=== PATIENT | female | born 1980 | race African-American/Black ===

== ENCOUNTER 2023-12-01 20:27 | Emergency (ER) | payer MEDICAID ==
[~2023-12-01] VITALS: Ht 160 cm; Wt 100.0 kg
[~2023-12-01 20:27] MED LIST: FISH1CAP47 PO; MULT-60 PO; SAFF1000 PO
[2023-12-01] MEDS ORDERED: ACETAMINOPHEN 160 MG/5 ML SUSPENSION UDCUP PO ONE (21:15)
[2023-12-01] MEDS: ACETAMINOPHEN 325 MG TABLET PO ONE (21:26)
[2023-12-01 21:52] LABS: COVID AG,FIA SOURCE NASAL SWAB
[2023-12-01 22:05] LABS: APPEARANCE,URINE CLEAR (CLEAR); BILIRUBIN,URINE NEGATIVE (NEGATIVE); COLOR,URINE YELLOW (YELLOW); GLUCOSE, URINE (UA) NEGATIVE (NEGATIVE); KETONES,URINE NEGATIVE (NEGATIVE); LEUKOCYTE ESTERASE ,URINE NEGATIVE (NEGATIVE); NITRATE,URINE NEGATIVE (NEGATIVE); OCCULT BLOOD,URINE MODERATE (NEGATIVE); PROTEIN,URINE TRACE mg/dL (NEGATIVE); SPECIFIC GRAVITIY, URINE 1.031 (1.003-1.030); UROBILINOGEN,URINE <=1.0 mg/dL (<=1.0)
[2023-12-01 22:11] LABS: BACTERIA,URINE Rare /HPF (None Seen); SQUAMOUS EPITHELIAL CELL,UR Moderate /LPF (None Seen); WBC,URINE 0-2 /HPF (0-5)
[2023-12-01 22:17] LABS: INFLUENZA TYPE A NEGATIVE FOR TYPE A (NEGATIVE); INFLUENZA TYPE B NEGATIVE FOR TYPE B (NEGATIVE)
[2023-12-01 22:21] LABS: SARS-COV2 (COVID) ANTIGEN,FIA Negative (Negative)
[2023-12-02 00:19] VITALS: BP 147/94; PULSE 106; RESP 20; TEMP 100.3
[2023-12-02] MEDS ORDERED: ALBU18HF12 IH (01:24)
[2023-12-02] MEDS ORDERED: AZIT250T9 PO (01:24)
[2023-12-02] MEDS ORDERED: BENZ-227 PO (01:24)
== END 2023-12-02 01:28 | disposition home or self-care (01) ==
LOC: EMS 20:34
DX: J98.4 Other disorders of lung (principal); J45.909 Unspecified asthma, uncomplicated; Z20.822 Contact with and (suspected) exposure to COVID-19
CPT/HCPCS: 71046; 81001; 84703; 87430; 87804; 99284